=== PATIENT | female | born 1950 | race Caucasian/White ===

== ENCOUNTER 2022-09-21 18:48 | Observation (INO) | payer OTHER ==
[2022-09-21 20:20] LABS: #Basophils 0.1 thou/uL (0.0-0.2); #Eosinphils 0.1 thou/uL (0.0-0.7); #Monocytes 0.5 thou/uL (0.11-0.59); #Neutrophils 5.6 thou/uL (1.40-6.50); %Basophils 0.6 % (0.0-1.0); %Eosinophils 1.7 % (0.0-10.0); %Lymphocytes 17.7 % (21.0-51.0); %Monocytes 6.7 % (0.0-10.0); Hemoglobin 14.1 g/dL (12.0-16.0); Mean Corpuscular Hemoglobin 32.8 pg (27.0-31.0); Mean Corpuscular Volume 102.6 fl (78.0-98.0); Platelet Count 149 10x3/uL (130-400); RBC Distribution Width 13.9 % (11.5-14.5); White Blood Cell (WBC) Count 7.7 10x3/uL (4.8-10.8)
[2022-09-21 21:55] LABS: Albumin 4.2 g/dL (3.4-4.8)
[2022-09-21 21:57] LABS: Calcium 9.2 mg/dL (7.8-10.44); Chloride 113 mmol/L (98-107); Potassium 3.6 mmol/L (3.5-5.1); Sodium 143 mmol/L (136-145)
[2022-09-21 21:58] LABS: Globulin 3.1 g/dL (2.4-3.5); Glucose 102 mg/dL (83-110); Protein, Total 7.3 g/dL (5.8-8.1)
[2022-09-21 21:59] LABS: Anion Gap 13 mmol/L (10-20); Carbon Dioxide 21 mmol/L (23-31)
[2022-09-21 22:00] LABS: Bilirubin, Total 0.3 mg/dL (0.2-1.2)
[2022-09-21 22:01] LABS: Alkaline Phosphatase 58 U/L (40-110); Calc. Creatinine Clearance 0 mL/min (70-130); Estimated GFR 46
[2022-09-21 22:02] LABS: BUN (Urea Nitrogen) 30 mg/dL (9.8-20.1)
[2022-09-21 22:03] LABS: AST (SGOT) 21 U/L (5-34)
[2022-09-21 22:04] LABS: ALT (SGPT) 10 U/L (8-55); CK (CPK) 245 U/L (29-168)
[2022-09-21 22:05] LABS: Acetaminophen Less than 10 mcg/mL (10.0-30.0); Alcohol Less than 10.0 mg/dL (Less than 10); Lipase 62 U/L (8-78); Magnesium 2.1 mg/dL (1.6-2.6); Salicylate Less than 8.0 mg/dL (15.0-30.0)
[2022-09-21 22:20] LABS: Bacteria/HPF None Seen HPF (None Seen); Bilirubin Negative (Negative); Blood, Urine Negative (Negative); CAUTI Indications for Culture Alt mental st,lethar; Clarity Clear (Clear); Glucose, Urine (Dipstick) Normal (Negative); Ketone, Urine Negative (Negative); Leukocyte 75 Leu/uL (Negative); Nitrite Negative (Negative); Protein, Urine (Dipstick) Negative (Neg-Trace); RBC/HPF 0-3 HPF (0-3); Squamous Epithelial None Seen HPF (0-3); Urobilinogen Normal mg/dL (Less than 2); WBC/HPF 0-3 HPF (0-3); pH, Urine 6.5 (5.0-9.0)
[2022-09-21 22:22] LABS: Urine Culture Reflex No No
[2022-09-21 22:25] LABS: Amphetamine Not Detected (NotDetected); Barbiturates Screen Not Detected (NotDetected); Benzodiazepine Screen Not Detected (NotDetected); Cocaine Metabolite Screen Not Detected (NotDetected); Methadone Not Detected (NotDetected); Methamphetamine Not Detected (NotDetected); Opiate Screen Not Detected (NotDetected); Oxycodone Screen Not Detected (NotDetected); Phencyclidine (PCP) Not Detected (NotDetected); THC/Cannabinoid Screen Not Detected (NotDetected); Tricyclic Screen Not Detected (NotDetected)
[2022-09-21] MEDS ORDERED: Ondansetron PF 4 MG/2 ML Vial IVP PRN (23:34)
[2022-09-21] MEDS ORDERED: levETIRAcetam 500 MG TAB PO SCH (23:45)
[2022-09-22 00:42] VITALS: BMI 20.8
[2022-09-22] MEDS ORDERED: Ipratropium/Albuterol 3 ML NEB NEB SCH (02:30)
[2022-09-22 04:59] LABS: #Basophils 0.1 thou/uL (0.0-0.2); #Eosinphils 0.2 thou/uL (0.0-0.7); #Monocytes 0.5 thou/uL (0.11-0.59); #Neutrophils 3.4 thou/uL (1.40-6.50); %Basophils 0.9 % (0.0-1.0); %Eosinophils 3.1 % (0.0-10.0); %Lymphocytes 29.8 % (21.0-51.0); Mean Corpuscular HGB CONC 32.1 g/dL (32.0-36.0); Mean Corpuscular Volume 102.8 fl (78.0-98.0); Mean Platelet Volume 11.5 fL (7.4-10.4); Platelet Count 135 10x3/uL (130-400); RBC Distribution Width 13.8 % (11.5-14.5); Red Blood Cell (RBC) Count 4.24 mill/uL (4.20-5.40); White Blood Cell (WBC) Count 5.8 10x3/uL (4.8-10.8)
[2022-09-22] MEDS ORDERED: Acetaminophen 325 MG TAB ONE (05:12)
[2022-09-22] MEDS: Acetaminophen 325 MG TAB PO PRN ×2 (05:14→16:01)
[2022-09-22 05:19] LABS: Anion Gap 11 mmol/L (10-20); BUN (Urea Nitrogen) 22 mg/dL (9.8-20.1); Calc. Creatinine Clearance 54 mL/min (70-130); Calcium 8.9 mg/dL (7.8-10.44); Carbon Dioxide 21 mmol/L (23-31); Cardiac Risk 2.9 (Less than 4.5); Chloride 114 mmol/L (98-107); Cholesterol 187 mg/dl (< 200 Desired); Estimated GFR 77; Glucose 95 mg/dL (83-110); HDL Cholesterol 64 mg/dL (>60 Neg Risk); LDL Cholesterol, Calculated 111 mg/dL; Potassium 3.8 mmol/L (3.5-5.1); Sodium 142 mmol/L (136-145); Triglycerides 59 mg/dL (Less than 150)
[2022-09-22 05:21] LABS: Hemoglobin A1c 5.2 % (4.0-6.0)
[2022-09-22] MEDS: levETIRAcetam 500 MG TAB PO SCH ×2 (08:59→21:16)
[2022-09-22] MEDS ORDERED: Zonisamide 100 MG CAP PO SCH (09:00)
[2022-09-22] MEDS ORDERED: Lisinopril 2.5 MG TAB PO SCH (09:00)
[2022-09-22] MEDS: Zonisamide 100 MG CAP PO SCH (09:02)
[2022-09-22] MEDS ORDERED: hydrALAZINE 20 MG/ML VIAL SLOW IVP PRN (18:25)
[2022-09-22] MEDS ORDERED: levETIRAcetam 500 MG TAB PO SCH (21:00)
[2022-09-23 05:34] LABS: #Basophils 0.1 thou/uL (0.0-0.2); #Eosinphils 0.3 thou/uL (0.0-0.7); #Monocytes 0.5 thou/uL (0.11-0.59); #Neutrophils 3.2 thou/uL (1.40-6.50); %Basophils 1.1 % (0.0-1.0); %Eosinophils 4.6 % (0.0-10.0); %Lymphocytes 28.7 % (21.0-51.0); %Monocytes 9.3 % (0.0-10.0); %Neutrophils 56.1 % (42.0-75.0); Hemoglobin 14.2 g/dL (12.0-16.0); Mean Corpuscular HGB CONC 32.1 g/dL (32.0-36.0); Mean Corpuscular Hemoglobin 32.5 pg (27.0-31.0); Mean Corpuscular Volume 101.1 fl (78.0-98.0); Mean Platelet Volume 10.8 fL (7.4-10.4); Platelet Count 133 10x3/uL (130-400); RBC Distribution Width 13.6 % (11.5-14.5); Red Blood Cell (RBC) Count 4.37 mill/uL (4.20-5.40); White Blood Cell (WBC) Count 5.7 10x3/uL (4.8-10.8)
[2022-09-23 06:02] LABS: ALT (SGPT) 10 U/L (8-55); AST (SGOT) 18 U/L (5-34); Albumin 3.9 g/dL (3.4-4.8); Alkaline Phosphatase 56 U/L (40-110); Anion Gap 11 mmol/L (10-20); BUN (Urea Nitrogen) 18 mg/dL (9.8-20.1); Bilirubin, Total 0.4 mg/dL (0.2-1.2); Calc. Creatinine Clearance 49 mL/min (70-130); Calcium 8.8 mg/dL (7.8-10.44); Carbon Dioxide 22 mmol/L (23-31); Chloride 114 mmol/L (98-107); Estimated GFR 69; Globulin 2.9 g/dL (2.4-3.5); Glucose 100 mg/dL (83-110); Potassium 3.9 mmol/L (3.5-5.1); Protein, Total 6.8 g/dL (5.8-8.1); Sodium 143 mmol/L (136-145)
[2022-09-23] MEDS ORDERED: Carvedilol 3.125 MG TAB PO SCH (08:00)
[2022-09-23 08:09] VITALS: TEMP 98.4
[2022-09-23] MEDS ORDERED: Pregabalin 75 MG CAP PO SCH (09:00)
[2022-09-23] MEDS ORDERED: Lisinopril 2.5 MG TAB PO SCH (09:00)
[2022-09-23] MEDS ORDERED: Lisinopril 5 MG TAB PO SCH (09:00)
[2022-09-23] MEDS: levETIRAcetam 500 MG TAB PO SCH (09:59)
[2022-09-23] MEDS: Zonisamide 100 MG CAP PO SCH (10:33)
[2022-09-23 13:18] VITALS: BP 161/76
[2022-09-23] MEDS ORDERED: Cholestyramine/Aspartame 4 gm Packet PO SCH (22:00)
== END 2022-09-23 14:05 | disposition home or self-care (01) ==
LOC: ERS 18:48 → ERHOLD 22:59 → 2SE 09-22 12:11
PROVIDERS: ADMIT Internal Medicine; ATTEND Internal Medicine
DX: G93.40 Encephalopathy, unspecified (principal); G40.909 Epilepsy, unspecified, not intractable, without status epilepticus; I12.9 Hypertensive chronic kidney disease with stage 1 through stage 4 chronic kidney disease, or unspecified chronic kidney disease; N18.9 Chronic kidney disease, unspecified; J44.9 Chronic obstructive pulmonary disease, unspecified; D63.1 Anemia in chronic kidney disease; M79.7 Fibromyalgia; M54.50 Low back pain, unspecified; G89.29 Other chronic pain; Z88.8 Allergy status to other drugs, medicaments and biological substances; Z88.1 Allergy status to other antibiotic agents; Z88.7 Allergy status to serum and vaccine; Z88.0 Allergy status to penicillin; Z91.041 Radiographic dye allergy status; Z79.899 Other long term (current) drug therapy
CPT/HCPCS: 70450; 71045; 80048; 80053; 80061; 80177; 80306; 80307; 81001; 82140; 82550; 83036; 83690; 83735; 83880; 84484; 85025 ×2; 93005; 93306; 93880; 95816; 95819; 95957; 97116; 97535; G0378 ×4; 36415; 84443

== ENCOUNTER 2023-02-09 13:58 | Outpatient (CLI) | payer OTHER, MEDICAID | END 2023-02-09 13:59 | disposition home or self-care (01) | LOC: BICCT 13:58 | PROVIDERS: ATTEND Psychiatry & Neurology Neurology | DX: R56.9 Unspecified convulsions (principal); I67.89 Other cerebrovascular disease; R90.89 Other abnormal findings on diagnostic imaging of central nervous system; I65.22 Occlusion and stenosis of left carotid artery; I67.2 Cerebral atherosclerosis; J34.89 Other specified disorders of nose and nasal sinuses | CPT/HCPCS: 70450 ==

== ENCOUNTER 2023-06-08 14:46 | Outpatient (CLI) | payer OTHER, MEDICAID ==
[2023-06-08 17:07] LABS: #Basophils 0.1 10x3/uL (0.0-0.2); #Eosinphils 0.2 10x3/uL (0.0-0.5); #Monocytes 0.5 10x3/uL (0.0-1.1); #Neutrophils 3.3 10x3/uL (1.5-8.4); %Basophils 1.6 % (0.0-2.0); %Eosinophils 3.3 % (0.0-6.0); %Lymphocytes 26.9 % (18.0-47.0); %Monocytes 8.3 % (0.0-10.0); %Neutrophils 59.5 % (40.0-75.0); Hematocrit 40.9 % (34.9-44.5); Hemoglobin 13.2 g/dL (12.0-15.5); Mean Corpuscular HGB CONC 32.3 g/dL (32.0-36.0); Mean Corpuscular Hemoglobin 33.5 pg (27.0-33.0); Mean Corpuscular Volume 103.8 fl (81.6-98.3); Mean Platelet Volume 10.8 fl (7.4-10.4); Platelet Count 195 10x3/uL (150-450); RBC Distribution Width 13.6 % (11.5-14.5); Red Blood Cell (RBC) Count 3.94 10x6/uL (3.90-5.03); White Blood Cell (WBC) Count 5.5 10x3/uL (3.5-10.5)
[2023-06-08 17:45] LABS: Anion Gap 13 mmol/L (10-20); BUN (Urea Nitrogen) 19 mg/dL (9.8-20.1); Calc. Creatinine Clearance 0 mL/min (70-130); Carbon Dioxide 23 mmol/L (23-31); Chloride 109 mmol/L (98-107); Estimated GFR 61; Glucose 71 mg/dL (83-110); Potassium 3.7 mmol/L (3.5-5.1); Sodium 141 mmol/L (136-145)
[2023-06-08 21:01] LABS: Hemoglobin A1c 5.7 % (4.0-6.0)
== END 2023-06-08 14:47 | disposition home or self-care (01) ==
LOC: LABBT 14:46
PROVIDERS: ATTEND Specialist
DX: Z01.818 Encounter for other preprocedural examination (principal); K62.3 Rectal prolapse
CPT/HCPCS: 71046; 80048; 83036; 85025; 93005; 93010

== ENCOUNTER 2023-10-16 11:16 | Outpatient (CLI) | payer OTHER, MEDICAID ==
[2023-10-16 13:34] LABS: Hematocrit 41.2 % (34.9-44.5); Hemoglobin 13.9 g/dL (12.0-15.5)
[2023-10-16 14:02] LABS: Anion Gap 13 mmol/L (10-20); BUN (Urea Nitrogen) 34 mg/dL (9.8-20.1); Calc. Creatinine Clearance 0 mL/min (70-130); Calcium 9.3 mg/dL (7.8-10.44); Carbon Dioxide 24 mmol/L (23-31); Chloride 108 mmol/L (98-107); Estimated GFR 65; Glucose 100 mg/dL (83-110); Sodium 141 mmol/L (136-145)
== END 2023-10-16 11:17 | disposition home or self-care (01) ==
LOC: LABBT 11:16
PROVIDERS: ATTEND Specialist
DX: Z01.818 Encounter for other preprocedural examination (principal); Z96.82 Presence of neurostimulator
CPT/HCPCS: 80048; 85014; 85018; 93005; 93010